=== PATIENT | female | born 1995 | race Caucasian/White ===

== ENCOUNTER 2018-01-16 11:49 | Emergency (ER) | payer BC, OTHER ==
[2018-01-16 13:02] LABS: #Basophils 0.1 thou/uL (0.0-0.2); #Eosinphils 0.2 thou/uL (0.0-0.7); #Lymphocytes 1.9 thou/uL (1.20-3.40); #Monocytes 0.5 thou/uL (0.11-0.59); %Eosinophils 2.6 % (0.0-10.0); %Lymphocytes 28.7 % (28.0-48.0); %Monocytes 7.2 % (0.0-4.0); %Neutrophils 60.6 % (31.0-61.0); Hemoglobin 11.3 g/dL (12.0-16.0); Hypochromia SLIGHT = 6-15 cells (100X) (0-5/hpf); Large Platelets SLIGHT; MDiff Complete? YES; Mean Corpuscular HGB CONC 30.4 g/dL (32.0-36.0); Mean Corpuscular Hemoglobin 21.9 pg (25.0-35.0); Mean Corpuscular Volume 72.1 fl (77.0-87.0); Mean Platelet Volume 11.2 fL (7.4-10.4); Microcytosis MODERATE=15-30 cells (100X) (0-5/hpf); PLT Morphology Comment Appears Adequate; Platelet Count 188 thou/uL (130-400); Polychromasia SLIGHT = 2-3 cells (100X) (0-2/hpf); RBC Distribution Width 15.6 % (11.5-14.5); Red Blood Cell (RBC) Count 5.17 mill/uL (4.00-5.20); White Blood Cell (WBC) Count 6.7 thou/uL (4.8-10.8)
[2018-01-16 13:06] LABS: ALT (SGPT) 13 U/L (8-55); AST (SGOT) 21 U/L (5-34); Alkaline Phosphatase 59 U/L (40-150); Anion Gap 10 mmol/L (10-20); BUN (Urea Nitrogen) 8 mg/dL (7.0-18.7); Bilirubin, Total 0.5 mg/dL (0.2-1.2); Calc. Creatinine Clearance 0 mL/min (70-130); Calcium 9.4 mg/dL (7.8-10.44); Carbon Dioxide 29 mmol/L (22-29); Chloride 103 mmol/L (98-107); Estimated GFR-MDRD 81; Glucose 92 mg/dL (70-105); Potassium 3.6 mmol/L (3.5-5.1); Sodium 138 mmol/L (136-145)
--- NOTE | 2018-01-16 13:12 | CT ---
CT HEAD WITHOUT CONTRAST: Date: 01-16-18 Comparison: None. History: Syncope, head trauma, headache with loss of consciousness. Technique: Serial axial CT imaging at 5 mm intervals from vertex through skull base without contrast. FINDINGS: The imaged paranasal sinuses and mastoid air cells are well aerated. No displaced calvarial fracture. No intracranial hemorrhage, midline shift, mass effect or ventricular enlargement. IMPRESSION: No intracranial hemorrhage or displaced calvarial fracture. POS: MAY
--- NOTE | 2018-01-16 13:19 | CT ---
CERVICAL SPINE CT WITHOUT CONTRAST: Date: 01/16/18 COMPARISON: None. HISTORY: Fall, trauma, pain, syncope, loss of consciousness. TECHNIQUE: Serial axial CT imaging at 2.5 mm intervals from skull base through lung apices without contrast. Cor onal and sagittal reformatted imaging obtained. FINDINGS: The imaged lung apices are unremarkable. The C1 ring, occipital condyles, dens, and C1-2 articulation appear within normal limits. Sagittal reformatted imaging demonstrates normal cervical vertebral body height and alignment with no prevertebral soft tissue swelling, fracture, or evidence of dislocation. The thyroid gland appears somewhat heterogeneous. There is a rim-calcified nodule in the right lobe o f the thyroid gland anteriorly measuring in the 7-8 mm range. IMPRESSION: 1. No acute osseous abnormality. 2. Abnormal appearance of the thyroid gland as detailed above. This could be better assessed via fol low-up thyroid ultrasound. POS: [facility]
== END 2018-01-16 14:56 | disposition home or self-care (01) ==
LOC: ERS 11:49
DX: R55 Syncope and collapse (principal); E04.1 Nontoxic single thyroid nodule; F41.9 Anxiety disorder, unspecified
CPT/HCPCS: 36415; 70450; 72125; 80053; 85025; 93005